=== PATIENT | male | born 1995 | race Caucasian/White ===

== ENCOUNTER 2020-10-11 20:00 | Outpatient (CLI) | payer OTHER, SELFPAY | END 2020-10-11 20:01 | disposition home or self-care (01) | LOC: SLEEP 10-12 10:22 | PROVIDERS: Visit Provider Orthopaedic Surgery | DX: G47.30 Sleep apnea, unspecified (principal) | CPT/HCPCS: 95810 ==

== ENCOUNTER → 2020-11-01 14:29 | Outpatient (BNVA) | payer OTHER, SELFPAY | PROVIDERS: Visit Provider Nurse Practitioner Family | DX: Z20.822 Contact with and (suspected) exposure to COVID-19 (principal) | CPT/HCPCS: 87635 ==

== ENCOUNTER 2020-11-12 11:45 | Emergency (ER) | payer OTHER, SELFPAY ==
[2020-11-12 11:54] VITALS: BP 128/77; PULSE 93; RESP 16; TEMP 36.6; O2SAT 96; BMI 30.3
--- NOTE | 2020-11-12 12:27 | ED_ITS ---
HPI - URI/Sore Throat General: Chief Complaint: Upper Respiratory Infection Stated Complaint: Cough,Congestion Time Seen by Provider: 11/12/20 12:26 Source: patient Mode of arrival: ambulatory Limitations: no limitations History of Present Illness: HPI Narrative: Patient is a 25-year-old male who presents to ED today with a complaint of a productive cough, left-sided chest pain, and nasal congestion. He states he is coughing and blowing out a green phlegm. He has not been running fevers. He states pain in his chest is worse with coughing. No hemoptysis. He tells me symptoms have been present over the past few days however looking at previous documentation it looks like he was seen approximately 9 days ago for similar symptoms and tested for COVID which was negative. No sore throat or sinus pain. MD elicited complaint: cough and nasal congestion Onset (ago): day(s) Description of mucous: green Able to tolerate fluids by mouth: Yes Exacerbating factors: nothing Relieving factors: nothing Associated symptoms: Reports chest pain and nasal congestion; Deny abdominal pain, chills, diarrhea, epistaxis, ear or mastoid pain, fever(s), nausea, sinus pain or vomiting Treatments prior to arrival: none Review of Systems Const: Denies: fever(s), chills, body aches, fatigue or malaise Eyes: Denies: change in vision, blurry vision, photophobia, floaters or seeing flashes ENMT: Reports: nasal discharge and nasal congestion; Denies: throat pain, enlarged tonsils, odynophagia, oral sores, dental pain, ear or mastoid pain, ear discharge, change in hearing, epistaxis, post nasal drip or sinus pain Card: Reports: chest pain; Denies: palpitations, irregular heart rhythm, edema, lightheadedness, syncope, pre-syncope or dyspnea on exertion Resp: Reports: productive cough, change in phlegm color and chest congestion; Denies: dyspnea, wheezing or hemoptysis GI: Denies: abdominal pain, nausea, vomiting or diarrhea Musc: Denies: neck pain Skin/Breast: Denies: rash [facility] ED PFSH: Social History (Updated 11/01/20 @ 14:20 by Dana Ayala NP) Smoking and tobacco status: never smoked Alcohol intake: never Physical Exam Const: COMMON NORMALS: no acute distress, average body habitus, patient oriented x3, no limitations, healthy appearing, alert and well nourished GENERAL APPEARANCE: cooperative ORIENTATION/CONSCIOUSNESS: Yes awake, Yes oriented to person, Yes oriented to place and Yes oriented to time HENMT: COMMON NORMALS: normocephalic, atraumatic, hearing grossly normal bilaterally, external ears normal, EAC's normal, TM's normal bilaterally, Normal external nose present, moist oral mucous membranes, oropharynx normal, dentition normal and gingiva normal HEAD & SCALP: normal to inspection, normocephalic and atraumatic FACE & SINUS: normal facial exam and sinuses nontender NOSE: Normal external nose present, Abnormal mucous membranes and turbinates present erythematous, Nasal discharge present and Other nasal findings present (L nasal congestion) EXTERNAL EAR: Yes external ears normal EXTERNAL AUDITORY CANAL: EAC's normal TYMPANIC MEMBRANE: TM's normal bilaterally MOUTH: Normal oral and palatal mucosa present, lip normal and tongue normal THROAT: posterior oropharynx normal, tonsils normal and uvula midline Neck/C-Spine: COMMON NORMALS: full ROM and no lymphadenopathy Resp: COMMON NORMALS: normal respiratory effort and clear to auscultation bilaterally AUSCULTATION: clear to auscultation bilaterally Cardio: COMMON NORMALS: regular rate and regular rhythm RATE: regular rate RHYTHM: regular rhythm Neuro: COMMON NORMALS: patient oriented x3 SENSORIUM/ORIENTATION: Yes alert, Yes oriented to person, Yes oriented to place and Yes oriented to time Course Vital Signs: Vital signs: Vital Signs Temperature 97.9 F 11/12/20 11:54 Pulse Rate 93 11/12/20 11:54 Respiratory Rate 16 11/12/20 11:54 Blood Pressure 128/77 11/12/20 11:54 Pulse Oximetry 96 11/12/20 11:54 MDM - URI/Sore Throat MDM Narrative: Medical decision making narrative: CXR is normal. Most likely viral URI/bronchitis. Discussed conservative treatment. Over 90% of these are viral and do not require antibiotics. Imaging Data^: CXR: Radiologist's impression: [address] [address] XRay Report Signed Patient: Davy Victor Unit #: [id number] : 1995 Age/Sex: 25 / M ADM Date: 11/12/20 Loc: ER Room/Bed: Attending Dr: Ordering Provider/Ordering MD: Page Birmingham Date of Service: 11/12/20 Procedure(s): XR chest 1V portable [id number] Accession Number(s): [id number] Report Number: [id number] WS: [id number] Exam: XR chest 1V portable [id number] Date/Time of Exam: 11/12/2020 12:44 PM Reason For Exam: chest pain/cough/congestion Comparison 02/20/2014. Findings: The lungs are clear and fully expanded. Costophrenic angles are sharp. No infiltrates. Bronchovascular relief appears normal. Cardiac silhouette is unremarkable. Bony elements are intact. XR/XR chest 1V portable [id number] IMPRESSION: Unremarkable chest radiograph. Dictated By: Harish Del Toro DO Signed By: Harish Del Toro DO Signed Date/Time: 11/12/20 1314 DD/ 1313 Discharge Plan Discharge Patient Disposition: Home Clinical Impression: Bronchitis Condition: Stable Prescriptions: No Action NyQuil 7.5-60-30-1,000 mg/30 mL Liquid 30 ml PO QID PRN (Reason: cold/flu sympoms) RF: 0 Mucinex 600 mg Tablet Extended Release 12hr 600 mg PO Q12H PRN (Reason: cold/flu symptoms) RF: 0 DayQuil Allergy 12-HR See Rx Instructions .ROUTE .COMPLEX RF: 0 Otc Inhaler See Rx Instructions .ROUTE .COMPLEX RF: 0 Discharge Orders: Discharge ED (Routine); Ordered 11/12/20 Ordered By: Page Birmingham Patient Instructions: Acute Bronchitis (ED) Coding Level of Care Code ED Lead Caster Helper for Chg Fwd Exam Detailed
--- NOTE | 2020-11-12 12:39 | XR_ITS ---
WS: [id number] Exam: XR chest 1V portable [id number] Date/Time of Exam: 11/12/2020 12:44 PM Reason For Exam: chest pain/cough/congestion Comparison 02/20/2014. Findings: The lungs are clear and fully expanded. Costophrenic angles are sharp. No infiltrates. Bronchovascula r relief appears normal. Cardiac silhouette is unremarkable. Bony elements are intact. XR/XR chest 1V portable [id number] IMPRESSION: Unremarkable chest radiograph.
== END 2020-11-12 13:26 | disposition home or self-care (01) ==
PROVIDERS: Emergency Provider Physician Assistant
DX: J40 Bronchitis, not specified as acute or chronic (principal)
CPT/HCPCS: 71045; 99282

== ENCOUNTER 2021-04-07 22:38 | Emergency (ER) | payer OTHER, SELFPAY ==
[2021-04-07 22:44] VITALS: BP 137/77; PULSE 75; RESP 20; TEMP 37; O2SAT 97; BMI 31.6
[2021-04-07] MEDS: nitroglycerin 0.4 mg sublingual Tablet SUBLINGUAL (22:54)
--- NOTE | 2021-04-07 23:12 | XRR_ITS ---
PROCEDURE INFORMATION: Exam: XR Chest Exam date and time: 04/07/2021 11:12 PM Age: 26 years old Clinical indication: Pain; Patient HX: Got steak stuck in throat; Additional info: Esophageal fb TECHNIQUE: Imaging protocol: XR of the chest. Views: 1 view. COMPARISON: CR XR chest 1V portable [id number] 11/12/2020 12:44 PM FINDINGS: Lungs: Unremarkable. No consolidation. Pleural spaces: Unremarkable. No pleural effusion. No pneumothorax. Heart/Mediastinum: Unremarkable. No cardiomegaly. Bones/joints: Unremarkable. XR/XR chest 1V portable [id number] IMPRESSION: No acute findings.
--- NOTE | 2021-04-07 23:13 | ED_ITS ---
HPI - General Adult General: Chief complaint: Airway/Esophagus Foreign Body Stated complaint: Steak stuck in Throat Time Seen by Provider: 04/07/21 22:43 Source: patient Mode of arrival: ambulatory Limitations: no limitations History of Present Illness: HPI narrative: Patient is a 26-year-old male who presents to ED today complaining of an esophageal food foreign body. Patient tells me approximately 5 hours ago he was eating steak and felt a piece of steak become lodged in his throat. Patient states he has not been able to eat or drink anything following this. He is having to spit his saliva. Patient states he has never had a previous esophageal foreign body. Patient is an otherwise healthy male. Onset (ago): hour(s) Exacerbating factors: eating and other (swallowing) Associated symptoms: Reports no associated symptoms; Deny chest pain, dyspnea, palpitations or vomiting Treatments prior to arrival: none Review of Systems Const: Denies: fever(s), chills or body aches Eyes: Denies: change in vision ENMT: Reports: odynophagia and other (reports food stuck in throat); Denies: throat pain or hoarseness Card: Denies: chest pain or palpitations Resp: Denies: dyspnea GI: Denies: abdominal pain or vomiting Musc: Denies: neck pain PFSH ED PFSH: Social History (Updated 11/01/20 @ 14:20 by Dana Ayala NP) Smoking and tobacco status: never smoked Alcohol intake: never Physical Exam Const: COMMON NORMALS: no acute distress, average body habitus, patient oriented x3, no limitations, healthy appearing, alert and well nourished GENERAL APPEARANCE: cooperative ORIENTATION/CONSCIOUSNESS: Yes awake, Yes oriented to person, Yes oriented to place and Yes oriented to time HENMT: COMMON NORMALS: normocephalic and atraumatic HEAD & SCALP: normocephalic and atraumatic FACE & SINUS: normal facial exam THROAT: posterior oropharynx normal OTHER: spitting saliva into emesis basin Neck/C-Spine: COMMON NORMALS: full ROM Chest: COMMONS NORMALS: normal inspection of the chest and normal palpation of entire chest wall Resp: COMMON NORMALS: normal respiratory effort and clear to auscultation bilaterally AUSCULTATION: clear to auscultation bilaterally Cardio: COMMON NORMALS: regular rate and regular rhythm RATE: regular rate RHYTHM: regular rhythm Neuro: COMMON NORMALS: patient oriented x3 SENSORIUM/ORIENTATION: Yes alert, Yes oriented to person, Yes oriented to place and Yes oriented to time Course Consultations: Consultation #1: Dr. Dotson-will come in and take pt to GI lab for endoscopy/removal Vital Signs: Vital signs: Vital Signs Temperature 98.6 F 04/07/21 22:44 Pulse Rate 75 04/07/21 22:44 Respiratory Rate 20 H 04/07/21 22:44 Blood Pressure 137/77 04/07/21 22:44 Pulse Oximetry 97 04/07/21 22:44 MDM - General Adult MDM Narrative: Medical decision making narrative: We have tried glucagon, ativan, and nitro without relief. Patient is still complaining of a foreign body and has not been able to hold down liquids here. Spoke to Dr. Dotson who will come in for endoscopy/removal. Dr. Avila has also evaluated patient and agrees with plan. Shortly after this patient vomited a large chunk of steak meat. He states he feels much better and was able to hold down liquids well here. He'll be allowed discharge. Imaging Data^: XR soft tissue neck: Radiologist's impression: [address] [address]LS[address] ReportSigned Patient: Memo Victor #: [id number]: 1995Acct#:[id number]/Sex : 26 / MADM Date: 04/07/21Loc: ERRoom/Bed:Attending Dr: Ordering Provider/Ordering MD: Page Birmingham Date of Service: 04/07/21 Procedure(s): XR soft tissue neck [id number] Accession Number(s): [id number] Report Number: [id number] PROCEDURE INFORMATION: Exam: XR Soft Tissue Neck Exam date and time: 04/07/2021 11:12 PM Age: 26 years old Clinical indication: Other: Steak stuck in throat; Additional info: Esophageal fb TECHNIQUE: Imaging protocol: XR of the soft tissues of the neck. COMPARISON: CR (CHEST, ) 04/07/2021 11:20 PM FINDINGS: Airway: Normal. No abnormal narrowing. Soft tissues: Normal. Normal epiglottis. Bones/joints: Unremarkable. XR/XR soft tissue neck [id number] IMPRESSION: No acute findings. Dictated By:Magen Wang MDSigned By:Magen Wang MDSigned Date/Time:04/08/21 0004DD/ 0002 CXR: Radiologist's impression: [facility] [address] [place] [address] XRay Report Signed Patient: Davy Victor Unit #: [id number] : 1995 Age/Sex: 26 / M ADM Date: 04/07/21 Loc: ER Room/Bed: Attending Dr: Ordering Provider/Ordering MD: Page Birmingham Date of Service: 04/07/21 Procedure(s): XR chest 1V portable [id number] Accession Number(s): [id number] Report Number: [id number] PROCEDURE INFORMATION: Exam: XR Chest Exam date and time: 04/07/2021 11:12 PM Age: 26 years old Clinical indication: Pain; Patient HX: Got steak stuck in throat; Additional info: Esophageal fb TECHNIQUE: Imaging protocol: XR of the chest. Views: 1 view. COMPARISON: CR XR chest 1V portable [id number] 11/12/2020 12:44 PM FINDINGS: Lungs: Unremarkable. No consolidation. Pleural spaces: Unremarkable. No pleural effusion. No pneumothorax. Heart/Mediastinum: Unremarkable. No cardiomegaly. Bones/joints: Unremarkable. XR/XR chest 1V portable [id number] IMPRESSION: No acute findings. Dictated By: Magen Wang MD Signed By: Magen Wang MD Signed Date/Time: 04/08/21 0003 DD/ 0001 Discharge Plan Discharge Patient Disposition: Home Clinical Impression: Food impaction of esophagus Qualifiers: Encounter type: initial encounter Qualified Code(s): T18.128A - Food in esophagus causing other injury, initial encounter Condition: Stable Prescriptions: No Action NyQuil 7.5-60-30-1,000 mg/30 mL Liquid 30 ml PO QID PRN (Reason: cold/flu sympoms) RF: 0 Mucinex 600 mg Tablet Extended Release 12hr 600 mg PO Q12H PRN (Reason: cold/flu symptoms) RF: 0 DayQuil Allergy 12-HR See Rx Instructions .ROUTE .COMPLEX RF: 0 Otc Inhaler See Rx Instructions .ROUTE .COMPLEX RF: 0 Discharge Orders: Discharge ED (Routine); Ordered 04/08/21 Ordered By: Page Birmingham Coding Level of Care Code ED Cut And Print Machine Operator for Naomi Fwd Exam Detailed
[2021-04-07] MEDS: ondansetron 2 mg/ML SDV 2 mL 4 MG IVP (23:41)
[2021-04-07] MEDS: LORazepam 2 mg/mL INJ 1 mL 1 MG IM (23:45)
[2021-04-08 01:06] VITALS: BP 123/79; PULSE 85; RESP 16; O2SAT 98
== END 2021-04-08 01:09 | disposition home or self-care (01) ==
PROVIDERS: Emergency Provider Physician Assistant
DX: T18.128A Food in esophagus causing other injury, initial encounter (principal); X58.XXXA Exposure to other specified factors, initial encounter
CPT/HCPCS: 70360; 71045; 96372; 96374; 99284; J1610; J2060; J2405

== ENCOUNTER → 2021-04-26 17:55 | Outpatient (BNVA) | payer OTHER, SELFPAY | PROVIDERS: Visit Provider Nurse Practitioner | DX: Z20.822 Contact with and (suspected) exposure to COVID-19 (principal) | CPT/HCPCS: 87635 ==

== ENCOUNTER 2022-06-27 12:48 | Outpatient (CLI) | payer OTHER, SELFPAY ==
--- NOTE | 2022-06-27 12:54 | FL_ITS ---
WS: [id number] Modified barium swallow, 06/27/2022 Clinical Data: Other dysphagia Comparison: None. Fluoroscopy time: 1min [id number] # of spot films: 0 Findings: The patient exhibited normal oral propulsion of material into the hypopharynx. There was rapid transi t of material through the hypopharynx. There is no pooling, penetration or aspiration. The lateral vi ews of the esophagus revealed no abnormalities or delay in transit. No abnormal esophageal contractio ns were seen. FL/FL barium swallow modifd [id number] Impression: Negative modified barium swallow.
== END 2022-06-27 12:49 | disposition home or self-care (01) ==
LOC: RAD 12:50
PROVIDERS: Visit Provider Emergency Medicine Emergency Medical Services
DX: R13.10 Dysphagia, unspecified (principal)
CPT/HCPCS: 74230; 92611

== ENCOUNTER 2024-12-15 07:42 | Outpatient (CLI) | payer OTHER, SELFPAY ==
--- NOTE | 2024-12-15 07:44 | USR_ITS ---
PROCEDURE INFORMATION: Exam: US Abdomen; Limited Exam date and time: 12/15/2024 7:50 AM Age: 29 years old Clinical indication: Abnormal findings; Abnormal lab test; Elevated liver enzymes TECHNIQUE: Imaging protocol: Real time ultrasound of the abdomen with image documentation. Limited exam focused on the region of clinical interest. COMPARISON: No relevant prior studies available. FINDINGS: Liver: Extensive hepatic steatosis. No focal liver lesion identified. Gallbladder: The gallbladder is unremarkable with no calcified stones visualized and no strandy inflammatory changes surrounding the gallbladder. Biliary ducts: The common bile duct is nondilated measuring 3 mm. Pancreas: The pancreas is not visualized due to overlying bowel gas. Right kidney: The right kidney is normal in appearance. No evidence of hydronephrosis or right renal calculi. Aorta: The visualized portions of the abdominal aorta are nonaneurysmal. Portal venous: Normal hepatopetal flow within the portal vein. US/US abdomen limited [id number] IMPRESSION: Hepatic steatosis.
== END 2024-12-15 07:43 | disposition home or self-care (01) ==
PROVIDERS: PCP Family Medicine; Visit Provider Family Medicine
DX: R74.01 Elevation of levels of liver transaminase levels (principal); K76.0 Fatty (change of) liver, not elsewhere classified
CPT/HCPCS: 76705